=== PATIENT | female | born 1960 | race Caucasian/White ===

== ENCOUNTER → 2018-04-13 | Outpatient (REF) | payer MEDICARE, MEDICAID ==
[2018-04-13 15:20] LABS: FREE T4 0.79 NG/DL (0.76-1.46); RHEUMATOID FACTOR QUANT < 10.0 IU/ML (<15.0); THYROID STIMULATING HORMONE 0.537 uIU/ML (0.358-3.740); TOTAL PROTEIN 7.3 GM/DL (6.4-8.2)
[2018-04-13 15:24] LABS: ERYTHROCYTE SEDIMENTATION RATE 9 mm/hr (0-30)
[2018-04-13 15:58] LABS: FOLATE 8.9 NG/ML
[2018-04-13 17:00] LABS: ESTIMATED AVERAGE GLUCOSE 103 MG/DL (60-110); HEMOGLOBIN A1c 5.2 %
[2018-04-15 15:11] LABS: ALBUMIN 4.19 GM/DL (3.29-5.55); ALBUMIN % 57.4 % (55.8-66.1); ALPHA-1-GLOBULIN % 3.7 % (2.9-4.9); ALPHA-1-GLOBULINS 0.27 GM/DL (0.17-0.41); ALPHA-2-GLOBULINS 0.85 GM/DL (0.42-0.99); ALPHA-2-GLOBULINS % 11.7 % (7.1-11.8); BETA-1-GLOBULINS 0.42 GM/DL (0.28-0.60); BETA-1-GLOBULINS % 5.8 % (4.7-7.2); BETA-2-GLOBULINS 0.42 GM/DL (0.19-0.55); BETA-2-GLOBULINS % 5.7 % (3.2-6.5); GAMMA GLOBULIN % 15.7 % (11.1-18.8); GAMMA GLOBULINS 1.15 GM/DL (0.65-1.58)
[2018-04-17 08:42] LABS: ANGIOTENSIN 1 CONVERTING ENZYM 50 U/L (14-82); ANTI DOUBLE STRAND-DNA AB <1 IU/mL (0-9); ANTINUCLEAR ANTIBODIES DIRECT Positive (Negative); RNP ANTIBODIES <0.2 AI (0.0-0.9); SJOGREN'S ANTI SS-A <0.2 AI (0.0-0.9); SJOGREN'S ANTI SS-B <0.2 AI (0.0-0.9); SMITH ANTIBODIES <0.2 AI (0.0-0.9); VITAMIN B1 LEVEL WHOLE BLOOD 144.4 nmol/L (66.5-200.0); VITAMIN E(ALPHA TOCOPHEROL) 8.5 mg/L (7.0-25.1); VITAMIN E(GAMMA TOCOPHEROL) 0.3 mg/L (0.5-5.5)
[2018-04-20 10:24] LABS: DRVV SCREEN 38.7 SEC
[2018-04-20 10:32] LABS: PTT LUPUS TYPE ANTICOAG SCREEN 0.9 (0-1.2)
== END ==
LOC: M LABNEURO 09:05
DX: G43.909 Migraine, unspecified, not intractable, without status migrainosus (principal); M54.5 Low back pain; M54.2 Cervicalgia; D86.9 Sarcoidosis, unspecified; E07.9 Disorder of thyroid, unspecified
CPT/HCPCS: 82746

== ENCOUNTER → 2023-03-10 | Outpatient (REF) | payer MEDICARE, MEDICAID ==
[~2023-03-10] MED LIST: ACTO15TA; ASPI325T; ATEN50TA2; CALCIUM SUPPLIMENT; CETI10TA; DURAGESIC; FISHCAP; GLUC1000; GLUC850T; HYDR25TA6; INSULANT; INSULIN LANTUS; KETO-28; LOVE1INJ; NAFCILLIN; OXYC10TA97; PERC5TAB8; POTA-77; PRIL20CA; PRIL40CA; TENO50TA; THERGRAN; ZOLO100T; [UNRECOGNIZED DRUG - CODE]; [UNRECOGNIZED DRUG - OTHER]
== END ==
LOC: M SFHCRHEU 10:23
PROVIDERS: ATTEND Internal Medicine
DX: M25.50 Pain in unspecified joint (principal)